=== PATIENT | male | born 1975 | race Two or more races ===

== ENCOUNTER 2018-11-10 13:02 | Inpatient (IN) | payer MEDICAID | END 2018-11-12 17:50 | disposition home or self-care (01) | LOC: TELE-WESTW 11-12 12:54 → ER 13:02 → WEST WING 11-11 16:18 → TELE-WESTW 11-11 16:32 → CATH 1 13:03 → DOU IN ICU 18:00 | PROC: 02703DZ Dilation of Coronary Artery, One Artery with Intraluminal Device, Percutaneous Approach (ICD-10-PCS; principal; ~2018-11-10) | PROC: B2151ZZ Fluoroscopy of Left Heart using Low Osmolar Contrast (ICD-10-PCS; ~2018-11-10) | PROC: 4A023N7 Measurement of Cardiac Sampling and Pressure, Left Heart, Percutaneous Approach (ICD-10-PCS; ~2018-11-10) | PROC: B2111ZZ Fluoroscopy of Multiple Coronary Arteries using Low Osmolar Contrast (ICD-10-PCS; ~2018-11-10) | DX: I25.110 Atherosclerotic heart disease of native coronary artery with unstable angina pectoris (principal); I21.9 Acute myocardial infarction, unspecified; E03.9 Hypothyroidism, unspecified; I10 Essential (primary) hypertension ==

== ENCOUNTER 2020-01-24 09:32 | Inpatient (IN) | payer MEDICAID ==
[~2020-01-24] VITALS: Ht 182.9 cm; Wt 102.9 kg
[~2020-01-24 09:32] MED LIST: ACYC1CAP23 PO; ASPI81CH43 PO; ATOR20TA50 PO; CLOP75TA28 PO; LISI-275 PO; METO-6 PO
[2020-01-24] MEDS ORDERED: NITROGLYCERIN 0.4 MG SL TAB SL ONE (10:00)
[2020-01-24 10:08] LABS: Basophils # (auto) 0.1 10 ^3/uL (0-0.2); Basophils % (auto) 0.7 % (0.0-2.0); Eosinophils # (auto) 0.4 10 ^3/uL (0-0.8); Eosinophils % (auto) 5.8 % (0.0-7.0); Hematocrit 47.8 % (41.0-53.0); Hemoglobin 16.7 g/dL (13.5-17.5); Lymphocytes # (auto) 2.5 10 ^3/uL (0.4-5.4); Lymphocytes % (auto) 33.6 % (10.0-50.0); Mean Corpuscular Hemoglobin 33.5 pg (28.0-32.0); Mean Corpuscular Volume 95.8 fL (80.0-100.0); Monocytes # (auto) 0.5 10 ^3/uL (0-1.3); Monocytes % (auto) 7.1 % (0.0-12.0); Neutrophils # (auto) 3.8 10 ^3/uL (1.6-8.6); Neutrophils % (auto) 52.8 % (37.0-80.0); Nucleated Red Blood Cells % 0.1 %; Platelet Count (auto) 307 10^3/uL (140-450); Red Blood Cells 4.99 10^6/uL (4.5-5.90); Red Cell Distribution Width 14.7 % (11.8-14.3); White Blood Cell 7.3 10^3/uL (4.4-10.8)
[2020-01-24] MEDS ORDERED: ONDANSETRON HCL 4 MG/2 ML VIAL IV ONE (10:15)
[2020-01-24] MEDS ORDERED: MORPHINE SULFATE 4 MG/ML SYR/VIAL IV ONE (10:15)
[2020-01-24 10:49] LABS: Albumin 3.6 g/dL (3.4-5.0); Calcium 8.6 mg/dL (8.5-10.1); Potassium 3.4 mmol/L (3.5-5.1)
[2020-01-24 10:57] LABS: BUN/Creatinine Ratio 8.9; Bilirubin, Total 0.6 mg/dL (0.2-1.0); Total Protein 6.5 g/dL (6.4-8.2)
[2020-01-24 11:57] LABS: Urine Bacteria NONE SEEN /hpf (None Seen); Urine Blood Negative /uL (Negative); Urine Specific Gravity 1.007 (1.001-1.035); Urine WBC 1 /hpf (0 - 3)
[2020-01-24] MEDS ORDERED: ASPirin 81 mg TAB PO ONE (13:00)
[2020-01-24] MEDS ORDERED: NITROGLYCERIN 0.4 MG SL TAB SL PRN (13:15)
[2020-01-24] MEDS ORDERED: ONDANSETRON HCL 4 MG/2 ML VIAL IV PRN (13:45)
[2020-01-24] MEDS ORDERED: DOCUSATE CALCIUM 240 MG CAP PO PRN (13:45)
[2020-01-24] MEDS ORDERED: LORazepam 0.5 MG TAB PO PRN (13:45)
[2020-01-24] MEDS ORDERED: hydrALAZINE HCL 20 MG/ML VL IV PRN (13:45)
[2020-01-24] MEDS: SODIUM CHLORIDE 0.9% 1,000 ML IV SCH (13:56)
--- NOTE | 2020-01-24 14:35 | NUR ---
Patient transferred to unit in stable condition via wheelchair. Patient stable with LAZ Porter at bedside.
[2020-01-24 15:10] VITALS: BP 118/77
[2020-01-24] MEDS ORDERED: POTASSIUM CHL 20 Meq TABLET PO ONE (15:30)
[2020-01-24] MEDS ORDERED: METO-169 PO (15:59)
[2020-01-24] MEDS ORDERED: DOCU1CAP31 PO (16:00)
--- NOTE | 2020-01-24 16:00 | NUR ---
Patient resting comfortably in bed with 2D echo in progress. Patient stable at this time.
--- NOTE | 2020-01-24 16:15 | NUR ---
Paged LAZ Porter to report critical value: trop 3.57. Awaiting call back.
[2020-01-24 17:00] VITALS: BP 135/81
[2020-01-24] MEDS: MORPHINE SULF INJ 2 MG/ML SYRINGE 1ML IV PRN (17:46)
--- NOTE | 2020-01-24 17:49 | NUR ---
Scheduled po medication given. Patient medicated for 6/10 chest pain as well.
--- NOTE | 2020-01-24 18:49 | NUR ---
Patient resting comfortably in bed. Patient stable since transfer to unit.
--- NOTE | 2020-01-24 19:10 | NUR ---
Paged Dr. Pitts to report critical lab value: trop 8.06. Immediately received call back; new orders given and carried out.
--- NOTE | 2020-01-24 19:40 | NUR ---
OPENING NOTE Received report from day shift RN. Patient is A&O X's 4 with no s/s of distress and reports no SOB. Patient does report some CP. Patient reports CP as a constant dull ache to left chest rating at a 4. patient reports no radiation. No other symptoms. EKG done at this time. MD Pitts reviewed it and was notified of patient's symptoms. Educated patient on POC/to use call light when in need of assistance and notify me if he has any changes in symptoms. Patient verbalized understanding. Patient aware of procedure tomorrow and not to eat/drink anything after midnight.
--- NOTE | 2020-01-24 19:58 | NUR ---
EKG EKG DONE AT THIS TIME. SENT TO MD YA. BHAKTI RECEIVED IT AND UPDATED ON PATIENTS SYMPTOMS. NEW ORDERS RECEIVED.
[2020-01-24] MEDS: NITROGLYCERIN 2% OINT 1GM PKG TD SCH (20:45)
[2020-01-24] MEDS: ENOXAPARIN SOD 100 MG/1 ML SYRINGE SC SCH (21:41)
[2020-01-24] MEDS: ATORVASTATIN 20 MG TAB PO SCH (21:42)
[2020-01-24] MEDS: ACYCLOVIR 400 MG TAB PO SCH (21:42)
[2020-01-24 22:00] VITALS: BP 124/75
--- NOTE | 2020-01-24 22:02 | NUR ---
IN HOUSE TALITA obtained and walked down to lab
--- NOTE | 2020-01-24 23:04 | NUR ---
ROUNDS Patient resting in bed with no s/s of distress or discomfort noted.
[2020-01-24 23:30] VITALS: BP 118/78
--- NOTE | 2020-01-24 23:55 | NUR ---
CRITICAL TROP AT 13.0 BIBID MD YA
--- NOTE | 2020-01-25 | NUR ---
PATIENT NPO PATIENT AWARE
--- NOTE | 2020-01-25 00:41 | NUR ---
ROUNDS Patient resting at this time. No s/s of distress. Respirations are even and unlabored. Will continue care.
--- NOTE | 2020-01-25 01:08 | NUR ---
RECEIVED CALL BACK FROM MD YA He was made aware of increased critical troponin levels now at 13.0 and patient saying the CP is dull and continuous rated about a 3/4. No other s/s reported by patient. Patient is resting comfortably at this time. Per MD. Let him know if CP worsens and it is okay to give morphine PRN CP. Will continue care.
--- NOTE | 2020-01-25 04:42 | NUR ---
ROUNDS Patient is resting in bed at this time. No s/s of distress or pain is seen. Will continue care.
[2020-01-25 05:00] VITALS: BP 115/87
[2020-01-25] MEDS: SODIUM CHLORIDE 0.9% 1,000 ML IV SCH ×2 (05:24→15:10)
[2020-01-25] MEDS: NITROGLYCERIN 2% OINT 1GM PKG TD SCH ×3 (05:25→18:33)
[2020-01-25 07:09] LABS: Basophils # (auto) 0 10 ^3/uL (0-0.2); Basophils % (auto) 0.7 % (0.0-2.0); Eosinophils # (auto) 0.3 10 ^3/uL (0-0.8); Eosinophils % (auto) 4.6 % (0.0-7.0); Hematocrit 47.3 % (41.0-53.0); Lymphocytes # (auto) 1.8 10 ^3/uL (0.4-5.4); Lymphocytes % (auto) 26.4 % (10.0-50.0); Mean Corpuscular Hemoglobin 32.8 pg (28.0-32.0); Mean Corpuscular Hgb Conc. 33.9 g/dL (32.0-36.0); Mean Corpuscular Volume 96.8 fL (80.0-100.0); Monocytes # (auto) 0.5 10 ^3/uL (0-1.3); Monocytes % (auto) 7.8 % (0.0-12.0); Neutrophils % (auto) 60.5 % (37.0-80.0); Nucleated Red Blood Cells % 0.2 %; Platelet Count (auto) 294 10^3/uL (140-450); Red Blood Cells 4.88 10^6/uL (4.5-5.90); Red Cell Distribution Width 15.1 % (11.8-14.3); White Blood Cell 6.7 10^3/uL (4.4-10.8)
[2020-01-25 07:22] LABS: Potassium 4.1 mmol/L (3.5-5.1)
[2020-01-25 07:23] LABS: INR 0.97 (0.9-1.15); Partial Thromboplastin Time 29.3 sec (23.0-31.2)
[2020-01-25 07:42] LABS: Albumin 3.4 g/dL (3.4-5.0); BUN/Creatinine Ratio 9.8; Bilirubin, Total 0.5 mg/dL (0.2-1.0); Calcium 8.5 mg/dL (8.5-10.1); Magnesium 2.2 mg/dL (1.6-2.6); Total Protein 6.1 g/dL (6.4-8.2)
[2020-01-25 08:00] VITALS: BP 117/76
--- NOTE | 2020-01-25 08:05 | NUR ---
Patient resting comfortably in bed; states mild chest pain 07/04. Patient stable at this time.
[2020-01-25] MEDS: CLOPIDOGREL BISULFATE 75 MG TAB PO SCH (08:54)
[2020-01-25] MEDS: METOPROLOL SUCCINATE 12.5 MG PO SCH (08:54)
[2020-01-25] MEDS: ASPirin 81 mg TAB PO SCH (08:54)
[2020-01-25] MEDS: PANTOPRAZOLE 40 MG TAB PO SCH ×2 (08:55→15:12)
[2020-01-25] MEDS: LISINOPRIL 5 MG TAB PO SCH ×2 (08:55→15:13)
[2020-01-25] MEDS: ENOXAPARIN SOD 100 MG/1 ML SYRINGE SC SCH (08:56)
[2020-01-25] MEDS: ACYCLOVIR 400 MG TAB PO SCH ×2 (08:56→21:49)
--- NOTE | 2020-01-25 08:57 | NUR ---
Patient resting comfortably in bed at this time. Will be taken to fence laborer momentarily.
--- NOTE | 2020-01-25 09:10 | NUR ---
Patient taken to laboratory courier for left heart cath.
[2020-01-25] MEDS ORDERED: LIDOCAINE 2%HCL (LOCAL ANESTH.) INJ 20ML MDV ONE (10:17)
[2020-01-25] MEDS ORDERED: MIDAZOLAM HCL 1MG/1ML-2 ML VIAL ONE (10:17)
[2020-01-25] MEDS ORDERED: fentaNYL CITRATE 100 MCG/2 ML VL ONE (10:17)
[2020-01-25] MEDS ORDERED: ANGIOMAX 250 MG VIAL IV ONE (10:17)
[2020-01-25] MEDS ORDERED: SODIUM CHL 0.9% 50 ML ONE (10:17)
[2020-01-25] MEDS ORDERED: HEPARIN SODIUM (PORCINE) 5000 UNITS/ML 1ML VIAL ONE (10:18)
[2020-01-25] MEDS ORDERED: VERAPAMIL 2.5MG/ML INJ 2ML VIAL IV ONE (10:18)
[2020-01-25] MEDS ORDERED: HEPARIN IN NS 1000Units/500mL 0 ML ONE (10:18)
--- NOTE | 2020-01-25 12:10 | NUR ---
Patient still off unit in laboratory assistant.
[2020-01-25] MEDS ORDERED: ASPirin 81 mg TAB ONE (13:33)
[2020-01-25] MEDS ORDERED: CLOPIDOGREL BISULFATE 75 MG TAB ONE (13:33)
[2020-01-25] MEDS: MORPHINE SULF INJ 2 MG/ML SYRINGE 1ML IV PRN ×3 (13:42→22:23)
--- NOTE | 2020-01-25 14:35 | NUR ---
Patient returned to unit in stable condition. Addendum: 01/25/20 at 1558 by JEAN-PAUL LSAT RN RN 1425: VASC on right wrist.
--- NOTE | 2020-01-25 15:00 | NUR ---
Post cath vital signs 1500: 158/107 1515: 126/101 1530: 157/103 1545: 161/98 Air removed from VASC per protocol
[2020-01-25 16:00] VITALS: BP 143/79
--- NOTE | 2020-01-25 18:00 | NUR ---
Post cath vital signs 1600: 149/79 1700: 163/91 1800: 122/59 Addendum: 01/25/20 at 1927 by JEAN-PAUL LAST RN RN 1900: 125/87
--- NOTE | 2020-01-25 18:30 | NUR ---
Scheduled medication given per order. Patient medicated for chest pain as well. Patient stable throughout shift.
--- NOTE | 2020-01-25 19:40 | NUR ---
RECEIVED PATIENT FROM DAY SHIFT RN. PATIENT RESTING IN BED. NO S/S OF DISTRESS NOTED. C/O CP @ 4/10 AFTER PAIN MEDICATION GIVEN EARLIER. PATIENT UNDERSTOOD THE SCHEDULE OF PAIN MANAGEMENT. DRESSING ON RIGHT WRIST C/D/I. NO S/S OF BLEEDING NOTED. POC INSTRUCTED AND ENCOURAGED PATIENT TO CALL FOR RETAIL WIRELESS ASSOCIATE IF NEEDED. BED IN LOWEST LOCKED POSITION WITH SIDE RAILS UP X 2. CALL HUFF WITHIN REACH. CONTINUE TO MONITOR FOR CHANGES Q1H AND PRN.
[2020-01-25] MEDS: ATORVASTATIN 20 MG TAB PO SCH (21:49)
[2020-01-25 22:00] VITALS: BP 135/75
--- NOTE | 2020-01-25 22:05 | NUR ---
PATIENT C/O CP @ 7/10, EKG DONE, SHOWED SR 62, BP 135/75, HR 62, RR 20, O2 SAT 94% ON RA. PUT PATIENT ON 2L/NC AND NITRO SL GIVEN ORDERED. CONTINUE TO MONITOR.
--- NOTE | 2020-01-25 22:25 | NUR ---
PATIENT STILL C/O PAIN @ 7/10, NITRO DID NOT HELP, MORPHINE GIVEN ORDERED. CONTINUE TO MONITOR.
--- NOTE | 2020-01-25 22:40 | NUR ---
HOSPITALIST NOTIFIED CASHIER RECEPTIONIST VICTOR MANUEL AWARE PATIENT HAD EPISODE OF CHEST PAIN, AND NITRO DID NOT HELP FOR THE PAIN, MORPHINE GIVEN ORDERED THAT HELPED. VICTOR MANUEL AWARE OF PATIENT'S VS AND SIGNED ON EKG. PATIENT DID NOT HAVE ANY OTHER PAIN MEDICATION, VICTOR MANUEL ORDERED NORCO 5/325MG ONCE PRN. CONTINUE TO MONITOR.
[2020-01-25] MEDS ORDERED: HYDROcodone-ACET 5/325MG TAB PO ONE (23:15)
[2020-01-26] MEDS: NITROGLYCERIN 2% OINT 1GM PKG TD SCH ×2 (00:30→05:49)
--- NOTE | 2020-01-26 02:03 | NUR ---
PATIENT SLEEPING. NO S/S OF DISTRESS AND PAIN NOTED. CONTINUE TO MONITOR.
[2020-01-26 05:00] VITALS: BP 126/66
[2020-01-26] MEDS: SODIUM CHLORIDE 0.9% 1,000 ML IV SCH (05:48)
[2020-01-26 05:52] LABS: Basophils # (auto) 0 10 ^3/uL (0-0.2); Basophils % (auto) 0.4 % (0.0-2.0); Eosinophils # (auto) 0.2 10 ^3/uL (0-0.8); Hemoglobin 15.5 g/dL (13.5-17.5); Lymphocytes # (auto) 1.2 10 ^3/uL (0.4-5.4); Lymphocytes % (auto) 15.7 % (10.0-50.0); Mean Corpuscular Hemoglobin 33.3 pg (28.0-32.0); Mean Corpuscular Hgb Conc. 34.5 g/dL (32.0-36.0); Mean Corpuscular Volume 96.6 fL (80.0-100.0); Monocytes # (auto) 0.7 10 ^3/uL (0-1.3); Monocytes % (auto) 8.5 % (0.0-12.0); Neutrophils # (auto) 5.7 10 ^3/uL (1.6-8.6); Neutrophils % (auto) 72.4 % (37.0-80.0); Platelet Count (auto) 266 10^3/uL (140-450); Red Blood Cells 4.65 10^6/uL (4.5-5.90); Red Cell Distribution Width 14.8 % (11.8-14.3); White Blood Cell 7.9 10^3/uL (4.4-10.8)
[2020-01-26 06:18] LABS: Potassium 3.8 mmol/L (3.5-5.1)
[2020-01-26 06:28] LABS: Albumin 3.2 g/dL (3.4-5.0); BUN/Creatinine Ratio 9.4; Bilirubin, Total 0.7 mg/dL (0.2-1.0); Calcium 8.1 mg/dL (8.5-10.1); Magnesium 2.5 mg/dL (1.6-2.6); Total Protein 6.1 g/dL (6.4-8.2)
--- NOTE | 2020-01-26 06:35 | NUR ---
RECEIVED CRITICAL LAB RESULT FROM [facility]ER[facility] BELTRAN TROP 10.2, WHICH IS LOWER THAN YESTERDAY. WILL PASS IT TO DAY SHIFT RN TO MD. CONTINUE TO MONITOR.
--- NOTE | 2020-01-26 08:26 | NUR ---
OPENING SHIFT PATIENT AWAKE RESTING IN BED. A/OX4. ON SPEAKER PHONE THIS RN ATTEMPTING TO ADDRESS CONCERNS PATIENT INQUIRING ON WHEN PAINTING AND COATING WORKER WILL ROUND UPDATED ON PLAN OF CARE. VERBALIZED UNDERSTANDING. PATIENT DENIES CHEST PAIN. PATIENT REMOVED NITRO BID AND COMPLAINS OF HEADACHE. WILL INFORM MD AND WILL CONTINUE TO MONITOR.
[2020-01-26 08:52] VITALS: BP 117/66
[2020-01-26] MEDS ORDERED: ACETAMINOPHEN 325 MG TAB PO PRN (09:45)
[2020-01-26] MEDS: METOPROLOL SUCCINATE 12.5 MG PO SCH (10:00)
[2020-01-26] MEDS ORDERED: CARVEDILOL 3.125 MG TAB PO SCH (10:00)
[2020-01-26] MEDS: CLOPIDOGREL BISULFATE 75 MG TAB PO SCH (10:01)
[2020-01-26] MEDS: LISINOPRIL 5 MG TAB PO SCH (10:02)
[2020-01-26] MEDS: PANTOPRAZOLE 40 MG TAB PO SCH (10:03)
[2020-01-26] MEDS: ASPirin 81 mg TAB PO SCH (10:03)
[2020-01-26] MEDS: ACYCLOVIR 400 MG TAB PO SCH (10:03)
[2020-01-26] MEDS ORDERED: ATOR20TA50 PO (11:45)
[2020-01-26] MEDS ORDERED: CLOP75TA28 PO (11:45)
[2020-01-26] MEDS ORDERED: PANT40TA2 PO (11:45)
[2020-01-26] MEDS ORDERED: LISI-275 PO (11:45)
[2020-01-26] MEDS ORDERED: METO-169 PO (11:45)
[2020-01-26] MEDS ORDERED: ASPI81CH43 PO (11:45)
[2020-01-26 12:28] VITALS: BP 117/64
[2020-01-26 13:00] VITALS: BP 134/85
--- NOTE | 2020-01-26 14:39 | NUR ---
Discharge instructions given as ordered. Encourage to follow up with PMD as instructed. All questions and concerns addressed. Patient verbalized understanding. IV removed with catheter intact, pressure dressing applied. Telemetry unit returned to ICU. Patient taken to vehicle with all personal belongings, accompanied by staff. No distress noted at time of departure.
== END 2020-01-26 14:50 | disposition home or self-care (01) | DRG 175 ==
LOC: EDBD 09:32 → ER 09:32 → TELE 09:33 → TELE-WESTW 14:25
PROVIDERS: ATTEND Internal Medicine
PROC: 027034Z Dilation of Coronary Artery, One Artery with Drug-eluting Intraluminal Device, Percutaneous Approach (ICD-10-PCS; principal; 2020-01-25)
PROC: 4A023N7 Measurement of Cardiac Sampling and Pressure, Left Heart, Percutaneous Approach (ICD-10-PCS; 2020-01-25)
PROC: B211YZZ Fluoroscopy of Multiple Coronary Arteries using Other Contrast (ICD-10-PCS; 2020-01-25)
PROC: B215YZZ Fluoroscopy of Left Heart using Other Contrast (ICD-10-PCS; 2020-01-25)
PROC: B240ZZ3 Ultrasonography of Single Coronary Artery, Intravascular (ICD-10-PCS; 2020-01-25)
DX: T82.855A Stenosis of coronary artery stent, initial encounter (principal); I21.4 Non-ST elevation (NSTEMI) myocardial infarction; E78.5 Hyperlipidemia, unspecified; E87.6 Hypokalemia; E07.9 Disorder of thyroid, unspecified; F10.10 Alcohol abuse, uncomplicated; R73.9 Hyperglycemia, unspecified; I25.10 Atherosclerotic heart disease of native coronary artery without angina pectoris; E87.1 Hypo-osmolality and hyponatremia; E66.9 Obesity, unspecified; I11.0 Hypertensive heart disease with heart failure; I50.43 Acute on chronic combined systolic (congestive) and diastolic (congestive) heart failure; Y84.0 Cardiac catheterization as the cause of abnormal reaction of the patient, or of later complication, without mention of misadventure at the time of the procedure; F17.210 Nicotine dependence, cigarettes, uncomplicated; R73.03 Prediabetes; Z20.828 Contact with and (suspected) exposure to other viral communicable diseases; Z88.1 Allergy status to other antibiotic agents; Z88.8 Allergy status to other drugs, medicaments and biological substances; Z95.5 Presence of coronary angioplasty implant and graft; I25.2 Old myocardial infarction; Z71.6 Tobacco abuse counseling; Z71.41 Alcohol abuse counseling and surveillance of alcoholic; Y92.89 Other specified places as the place of occurrence of the external cause
CPT/HCPCS: 36415; 71045; 80053; 80061; 81001; 83036; 83735; 83880; 84443; 84484; 85025; 85610; 85730; 86850; 86900; 86901; 93005; 93306; 99152; 99153; C1874; C1887; G0378; J2250; J2405

== ENCOUNTER 2020-07-27 15:48 | Emergency (ER) | payer MEDICAID ==
[~2020-07-27] VITALS: Ht 175.3 cm; Wt 93.4 kg
[~2020-07-27 15:48] MED LIST changes: +DOCU1CAP31 PO; +METO-169 PO; -METO-6 PO; +PANT40TA2 PO
[2020-07-27 16:56] VITALS: BP 128/82
[2020-07-27] MEDS ORDERED: cefTRIAXone SOD 1,000 MG VL IM ONE (17:30)
[2020-07-27] MEDS ORDERED: LIDOCAINE VISCOUS 2% 15ML UD PO ONE (17:30)
== END 2020-07-27 18:03 | disposition home or self-care (01) ==
LOC: ER 15:48
DX: J03.90 Acute tonsillitis, unspecified (principal); F17.210 Nicotine dependence, cigarettes, uncomplicated; I10 Essential (primary) hypertension; I25.2 Old myocardial infarction; Z88.6 Allergy status to analgesic agent
CPT/HCPCS: 96372; 99283; J0696